=== PATIENT | male | born 1950 | race Caucasian/White ===

== ENCOUNTER → 2022-02-25 12:53 | Outpatient (CLI) | payer MEDICARE, SELFPAY ==
[2022-02-25 14:28] LABS: Hematocrit 38.8 % (41-53); Hemoglobin 13.7 g/dL (13.5-17.5); Mean Corpuscular HGB Conc 35.4 % (30-36); Mean Corpuscular Hemoglobin 33.3 PG (26-34); Mean Corpuscular Volume 94.1 fL (80-100); Platelet Count 221 X10^3/uL (150-400); Red Blood Cell Count 4.12 X10^6/uL (4.5-5.9); Red Cell Distribution Width 12.9 % (11.6-14.8)
[2022-02-25 14:49] LABS: Alanine Aminotransferase 19 IU/L (<50); Albumin 4.4 g/dL (3.5-5.0); Albumin Globulin Ratio 1.6 (1.0-2.8); Alkaline Phosphatase 62 U/L (38-126); Aspartate Aminotransferase 25 IU/L (17-59); BUN Creatinine Ratio 32.3 (6-22); Bilirubin Total 0.5 mg/dL (0.2-1.3); Blood Urea Nitrogen 32 mg/dL (9-20); Calcium 9.2 mg/dL (8.4-10.2); Carbon Dioxide 23 mmol/L (22-32); Chloride 108 mmol/L (98-107); Cholesterol 159 mg/dL (140-199); Estimated Glomerular Filt Rate > 60 mL/min (>60); Globulin 2.8 g/dL (1.7-4.1); Glucose 90 mg/dL (80-110); HDL Cholesterol 65 mg/dL (40-60); HEMOLYSIS < 15 (0-50); LDL Cholesterol Calculated 72 mg/dL (<100); Potassium 4.4 mmol/L (3.4-5.1); Sodium 138 mmol/L (137-145); Total Protein 7.2 g/dL (6.3-8.2); Triglycerides 111 mg/dL (35-150)
[2022-02-25 15:18] LABS: Prostate Specific Antigen 1.48 ng/mL (0.10-4.00)
[2022-02-25 15:19] LABS: TSH w/ Reflex to FT4 1.41 uIU/mL (0.47-4.68)
== END ==
PROVIDERS: PCP Internal Medicine; Referring Provider Internal Medicine; Visit Provider Internal Medicine
DX: E78.2 Mixed hyperlipidemia (principal); N40.1 Benign prostatic hyperplasia with lower urinary tract symptoms; N13.8 Other obstructive and reflux uropathy
CPT/HCPCS: 36415; 80053; 80061; 84153; 84443; 85027

== ENCOUNTER 2022-04-06 07:18 | Day surgery (SDC) | payer MEDICARE, SELFPAY ==
[2022-04-01 14:09] VITALS: BMI 23.5
[2022-04-06 07:34] VITALS: BP 153/84; PULSE 68; RESP 16; TEMP 36.3; O2SAT 97; BMI 23.5
[2022-04-06 08:13] LABS: COVID19 -Nasal RAPID Negative (Negative)
--- NOTE | 2022-04-06 09:11 | PM.HP.1 ---
History of Present Illness History of Present Illness Date Patient Seen: 04/06/22 Time Patient Seen: 09:11 Chief complaint: COC Narrative: Robert is here for his right inguinal hernia repair. He did decide after our last encounter that he would like to proceed with the standard open inguinal hernia repair with mesh rather than the Shouldice tissue repair. Patient History Medical History (Updated 04/01/22 @ 14:12 by Deb Baxter RN) Arthritis BPH w urinary obs/LUTS Depression Depression, major, recurrent Easy bruisability Eczematous dermatitis Gait abnormality Generalized anxiety disorder Hearing loss Mixed hyperlipidemia Psoriasis Right ear impacted cerumen Right inguinal hernia Screening for colon cancer Tendonitis of left rotator cuff Surgical History Anesthesia History of shoulder surgery (~2011) Family & Social History Family History Father Cancer Mother Accident Brother Cancer Social History: household members none Tobacco & Substance use: Tobacco type e-cigarettes Smoking Status Current every day smoker alcohol intake current alcohol intake frequency 0-2 drinks per day Substance Use Type marijuana Meds Home Medications and Allergies Home Medications Medication Instructions Recorded Confirmed Type bupropion HCl 150 mg 24 hr tablet, 150 mg PO DAILY 02/25/22 04/06/22 History extended release nystatin 100,000 unit/gram topical 1 applic topical DAILY PRN steve 02/25/22 03/03/22 History powder (Nystop) tamsulosin 0.4 mg capsule 0.4 mg PO DAILY 02/25/22 04/06/22 History acetaminophen 500 mg tablet 1,000 mg PO BID 04/01/22 04/06/22 History ibuprofen 200 mg tablet 400 mg PO BID 04/01/22 04/06/22 History Allergies Allergy/AdvReac Type Severity Reaction Status Date / Time No Known Drug Allergies Allergy Verified 03/03/22 14:55 Exam Vital Signs (past 8 hours): - 04/06/22 07:34 Temperature 97.3 F L Pulse Rate 68 Respiratory Rate 16 Blood Pressure 153/84 H Pulse Oximetry 97 Oxygen Delivery Method Room Air Oxygen Delivery Method Room Air Narrative Exam Narrative: Large right inguinal hernia Const General: No acute distress Objective Labs Labs: Laboratory Results - last 24 hr 04/06/22 07:30 SARS-CoV-2 (PCR) Negative Assessment & Plan Assessment and plan (1) Right inguinal hernia: Status: Acute Plan We will proceed with a standard open right inguinal hernia repair with mesh. He understands the risks and benefits and wishes to proceed. Time Spent With Patient Critical Care time: I spent a total of [] minutes of critical care time on this patient's care today; this time is exclusive of procedural time.
[2022-04-06] MEDS: CEFAZOLIN 2 GM/20 ML SYRINGE IV (09:50)
[2022-04-06] MEDS: BUPIVACAINE 0.5% (PF) VIAL 30 ML INJ (10:00)
[2022-04-06] MEDS: LIDOCAINE 1% W/EPI 20 ML INJ (10:00)
--- NOTE | 2022-04-06 10:05 | SUR.OPER ---
Supine on padded OR bed, head on pillow, arms secured on padded arm boards at <90 degrees abduction, legs uncrossed, safety belt at thigh, tape over blanket over lower legs.
[2022-04-06 11:15] VITALS: BP 129/66; PULSE 65; RESP 16; TEMP 36.7; O2SAT 92
[2022-04-06] MEDS: LACTATED RINGERS 1,000 ML 42 ML IV (11:15)
[2022-04-06 11:20] VITALS: BP 133/68; PULSE 66; RESP 16; O2SAT 93
--- NOTE | 2022-04-06 11:23 | P.OP_ITS ---
Operative Date/Time/Diagnoses Date of procedure: 04/06/22 Time of procedure: 11:23 Pre-op diagnosis: Right inguinal hernia Post-op diagnosis: same Procedure & Clinicians Procedure: Open right inguinal hernia repair with mesh Same procedure as scheduled: Yes Surgeon: Jonathon Howard Anesthesia Type: General Operative Notes Procedure in detail: Preoperative antibiotic was administered. The patient was brought to the operating room and placed on the table in supine position general anesthesia was induced. The right groin was prepped and draped in the normal fashion and a time-out was performed. The large right inguinal hernia was reduced after the patient is asleep. Roughly 10 mL of local anesthetic were injected into the skin and subcutaneous adipose tissue over the right groin. A 7 cm incision was made over the right inguinal canal. Dissection was carried down through the subcutaneous adipose tissue. A bridging vein was cauterized. We exposed the external oblique aponeurosis in the direction of the fibers. Additional local was injected deep to the aponeurosis. A 15 blade scalpel was used to itz the external oblique aponeurosis. Metzenbaum scissors were used to carefully open the aponeurosis in the direction of the fibers taking care not to injure the underlying ilioinguinal nerve. We completely exposed the inguinal canal. The cord was dissected free from the inguinal ligament and floor of the inguinal canal and the external oblique ap oneurosis was dissected off of the internal oblique taking care not to injure the hypogastric nerve. We encircled the cord with a Paicines drain for retraction. We divided some of the cremasteric fibers near the internal ring. There was a large indirect hernia sac. We dissected the sac free from the cord structures. We then fashioned a piece of polypropylene mesh to fit the inguinal canal floor. The mesh was secured with multiple interrupted 3-0 Prolene sutures to the pubic tubercle and shelving edge of the inguinal ligament as well as to the conjoint tendon medially. We cut a slit in the mesh and overlapped the tails to recreate an internal ring and secured the medial tail to the inguinal ligament with additional sutures. We injected some more local into the fatty tissue in the inguinal canal and cord. Finally, we removed the Cayden drain and closed the external oblique fascia with a running 3-0 Vicryl suture. Skin was closed with interrupted 3-0 Vicryl dermal sutures and a running 4 Monocryl subcuticular stitch. EBL 15 mL The patient was awakened and brought to recovery room. Post-operative Condition: stable Disposition: PACU
[2022-04-06 11:25] VITALS: BP 113/69; PULSE 66; RESP 14; TEMP 36.1; O2SAT 95
[2022-04-06 11:30] VITALS: BP 113/69; PULSE 67; RESP 14; O2SAT 96
[2022-04-06 11:40] VITALS: BP 114/65; PULSE 68; RESP 16; TEMP 36.2; O2SAT 94
--- NOTE | 2022-04-06 11:51 | SUR.PHASEII ---
Discharge instructions reviewed with pt and he verbalized understanding.
== END 2022-04-06 12:00 | disposition home or self-care (01) ==
PROVIDERS: PCP Internal Medicine; Referring Provider Surgery; Visit Provider Surgery
PROC: (CPT 49505; principal; 2022-04-06 09:15)
DX: K40.90 Unilateral inguinal hernia, without obstruction or gangrene, not specified as recurrent (principal); Z20.822 Contact with and (suspected) exposure to COVID-19
CPT/HCPCS: 49505; 87635; C9803; J0690; J1100; J1885; J2250; J2405; J2704; J3010

== ENCOUNTER → 2023-10-17 12:22 | Outpatient (CLI) | payer MEDICARE, SELFPAY ==
[2023-10-17 13:06] LABS: Hematocrit 41.6 % (41-53); Hemoglobin 14.5 g/dL (13.5-17.5); Mean Corpuscular Hemoglobin 33.1 PG (26-34); Mean Corpuscular Volume 94.5 fL (80-100); Platelet Count 206 X10^3/uL (150-400); Red Cell Distribution Width 13.2 % (11.6-14.8); White Blood Cell Count 6.5 X10^3/uL (4.5-11.0)
[2023-10-17 13:46] LABS: Alanine Aminotransferase 31 IU/L (<50); Albumin 4.3 g/dL (3.5-5.0); Albumin Globulin Ratio 1.4 (1.0-2.8); Alkaline Phosphatase 64 U/L (38-126); Aspartate Aminotransferase 28 IU/L (17-59); BUN Creatinine Ratio 27.7 (6-22); Bilirubin Total 0.8 mg/dL (0.2-1.3); Blood Urea Nitrogen 28 mg/dL (9-20); Calcium 10.1 mg/dL (8.4-10.2); Carbon Dioxide 25 mmol/L (22-32); Chloride 107 mmol/L (98-107); Cholesterol 126 mg/dL (140-199); Estimated Glomerular Filt Rate > 60 mL/min (>60); Glucose 96 mg/dL (80-110); HDL Cholesterol 65 mg/dL (40-60); HEMOLYSIS < 15 (0-50); LDL Cholesterol Calculated 24 mg/dL (<100); Potassium 4.5 mmol/L (3.4-5.1); Sodium 137 mmol/L (137-145); Total Protein 7.3 g/dL (6.3-8.2); Triglycerides 185 mg/dL (35-150)
[2023-10-17 14:09] LABS: Prostate Specific Antigen 1.83 ng/mL (0.10-4.00)
[2023-10-17 14:45] LABS: TSH w/ Reflex to FT4 1.63 uIU/mL (0.47-4.68)
== END ==
PROVIDERS: PCP Internal Medicine; Referring Provider Internal Medicine; Visit Provider Internal Medicine
DX: E78.2 Mixed hyperlipidemia (principal); N40.1 Benign prostatic hyperplasia with lower urinary tract symptoms; N13.8 Other obstructive and reflux uropathy; J44.9 Chronic obstructive pulmonary disease, unspecified
CPT/HCPCS: 36415; 80053; 80061; 84153; 84443; 85027

== ENCOUNTER → 2023-10-27 13:40 | Outpatient (CLI) | payer MEDICARE, SELFPAY | LOC: RESP 13:43 | PROVIDERS: PCP Internal Medicine; Referring Provider Internal Medicine; Visit Provider Internal Medicine | DX: J44.9 Chronic obstructive pulmonary disease, unspecified (principal); Z87.891 Personal history of nicotine dependence | CPT/HCPCS: 94060; 94726; 94729 ==

== ENCOUNTER → 2023-11-02 10:34 | Outpatient (CLI) | payer MEDICARE, SELFPAY ==
--- NOTE | 2023-11-02 10:35 | DI.CT.S_ITS ---
PROCEDURE: CT LUNG LOW DOSE SCREENING INDICATIONS: tobacco use disorder TECHNIQUE: Noncontrast 2.0-2.5 mm thick sections acquired from the pulmonary apices to the posterior costophrenic angles. 7 mm thick axial MIP, and 5 mm coronal and sagittal reformats were then acquired. For radiation dose reduction, the following was used: automated exposure control, adjustment of mA and/or kV according to patient size. COMPARISON: None. FINDINGS: Image quality: Diagnostic. Lower Neck: No enlarged lymph nodes. Thyroid: No thyroid nodules which require sonographic follow up, per consensus guidelines. Axillae: No enlarged lymph nodes. Chest Wall: Unremarkable. Bones: Unremarkable. Lungs and Pleura: There is severe centrilobular emphysema with an apical predominance. A 3 mm pulmonary nodule is present within the right lower lobe. Focal emphysematous changes are present in the dependent lung bases bilaterally. No pneumothorax or pleural effusions. No consolidation or suspicious nodules. Heart: Heart size is normal. No pericardial effusion. Thoracic Vessels: The aorta and pulmonary arteries demonstrate normal size. Scattered atheromatous calcifications are present within the aortic arch. Mediastinum and Marie: No enlarged lymph nodes. Esophagus: No wall thickening. No hiatal hernia. Upper Abdomen: Visualized upper abdomen solid organs and bowel loops appear normal. IMPRESSION: No suspicious pulmonary nodules. LUNG-RADS 1; continued annual screening, if eligible. Clinically Significant Non-pulmonary Findings: None. Dictated by: Nikole Staley M.D. on 11/02/2023 at 14:48 Approved by: Nikole Staley M.D. on 11/02/2023 at 14:56
== END ==
PROVIDERS: PCP Internal Medicine; Referring Provider Internal Medicine; Visit Provider Internal Medicine
DX: F17.210 Nicotine dependence, cigarettes, uncomplicated (principal); Z12.2 Encounter for screening for malignant neoplasm of respiratory organs; R91.1 Solitary pulmonary nodule; J43.2 Centrilobular emphysema
CPT/HCPCS: 71271

== ENCOUNTER 2024-02-07 11:59 | Day surgery (SDC) | payer MEDICARE, SELFPAY ==
[2024-02-07] MEDS: LACTATED RINGERS 1,000 ML 42 ML IV (12:22)
[2024-02-07 12:41] VITALS: BP 151/85; PULSE 81; RESP 16; TEMP 36.4; O2SAT 95
--- NOTE | 2024-02-07 13:13 | PM.HP.1 ---
History of Present Illness History of Present Illness Date Patient Seen: 02/07/24 Time Patient Seen: 13:13 Chief complaint: [facility] Narrative: 73-year-old man here for screening colonoscopy. Last colonoscopy 20 years ago normal. No family history of intestinal malignancy. No abdominal concerns today. [facility] Medical History (Updated 01/17/24 @ 11:13 by Jose Little MD) Elevated blood pressure reading without diagnosis of hypertension Tobacco use disorder COPD (chronic obstructive pulmonary disease) Psoriasis Easy bruisability Depression Arthritis Eczematous dermatitis Mixed hyperlipidemia Gait abnormality Tendonitis of left rotator cuff Right ear impacted cerumen BPH w urinary obs/LUTS Right inguinal hernia Generalized anxiety disorder Depression, major, recurrent Hearing loss Surgical History Anesthesia History of shoulder surgery (~2011) Family History Father Cancer Mother Accident Brother Cancer Social History details: , 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 sons, 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 household members: none Smoking Status: Former smoker alcohol intake: current Meds Home Medications and Allergies Home Medications Medication Instructions Recorded Confirmed Type nystatin 100,000 unit/gram topical 1 applic topical DAILY PRN steve 02/25/22 02/07/24 History powder (Nystop) acetaminophen 500 mg tablet 1,000 mg PO BID 04/01/22 02/07/24 History bupropion HCl 150 mg 24 hr tablet, 150 mg PO QAM #90 tabs 10/17/23 02/07/24 Rx extended release rosuvastatin 10 mg tablet 10 mg PO DAILY #90 tabs 10/17/23 02/07/24 Rx tamsulosin 0.4 mg capsule 0.4 mg PO DAILY #90 caps 10/17/23 02/07/24 Rx albuterol sulfate 90 mcg/actuation 2 inh inhalation Q4-6H PRN 01/11/24 02/07/24 Rx aerosol inhaler shortness of breath or wheezing #8.5 grams Allergies Allergy/AdvReac Type Severity Reaction Status Date / Time duloxetine AdvReac Intermediate lethargy Verified 02/07/24 12:30 Exam Vital Signs (past 8 hours): - 02/07/24 12:41 Temperature 97.5 F L Pulse Rate 81 Respiratory Rate 16 Blood Pressure 151/85 H Pulse Oximetry 95 Oxygen Delivery Method Room Air Oxygen Delivery Method Room Air Narrative Exam Narrative: General adult man alert oriented no acute distress Chest nonlabored respiration Extremities warm well perfused Assessment & Plan Assessment & Plan narrative: The patient requires colorectal screening and colonoscopy is recommended. Technical details were discussed. Risks, benefits, alternatives explained. Risks including but not limited to myocardial infarction, aspiration, bleeding, pain, missed lesion, incomplete examination, need for further radiographic studies, intestinal injury, and need for major abdominal surgery were discussed. All questions were answered to their satisfaction, and they are in agreement with this plan.
[2024-02-07 13:31] VITALS: BP 164/96; PULSE 74; RESP 23; TEMP 36.2; O2SAT 92
[2024-02-07 13:35] VITALS: BP 143/86; PULSE 79; RESP 17; O2SAT 92
[2024-02-07 13:37] VITALS: BP 119/77; PULSE 76; RESP 11; RESP 16; O2SAT 92; O2SAT 94
--- NOTE | 2024-02-07 13:37 | P.OP.COLON_ITS ---
Operative Date/Time/Diagnoses Date of procedure: 02/07/24 Time of procedure: 13:37 Pre-op diagnosis: Colorectal screening Procedure & Clinicians Study performed: Screening colonoscopy Same procedure as scheduled: Yes Indications: Colorectal screening Surgeon: Mariano Jackson Procedure Notes Procedure in detail: The history and physical was performed/updated and the patient is ASA class is 2. The procedure was discussed in detail with the patient. Potential risks co mplications including infection, bleeding, missed diagnosis, perforation, need for surgery, and were explained. Their questions were answered and informed consent was obtained. Patient was brought to the procedure room and placed standard monitoring equipment. The patient's vital signs were monitored continuously throughout the entire procedure. Prior to starting time-out was performed. The patient was placed in the left lateral recumbent position. Procedural sedation was administered by anesthesia. Examination began with a thorough inspection of the perianal area there was no evidence of fissures, fistulae, external hemorrhoids or cutaneous malignancy. The colonoscopy scope was then placed into the anal canal and was advanced to the cecum, which was identified by the ileocecal valve, the appendiceal orifice and the confluence of the taenia. The scope was then slowly withdrawn examining colon thoroughly in all directions, irrigating it of any residual stool. The scope was retroflexed within the rectum The patient tolerated the procedure well. They will be discharged once criteria are met. The prep was of fair. The withdrawl time was 7 minutes. FINDINGS * No masses or polyps * Extensive diverticulosis of the descending and sigmoid colon * Internal hemorrhoids Specimen(s): none sent Impression: Diverticulosis Post-procedure Recommendations: High fiber diet Disposition: same day surgery
[2024-02-07 13:46] VITALS: BP 123/79; PULSE 71; RESP 16; O2SAT 92
== END 2024-02-07 14:10 | disposition home or self-care (01) ==
PROVIDERS: PCP Internal Medicine; Referring Provider Surgery; Visit Provider Surgery
PROC: 0DJD8ZZ Inspection of Lower Intestinal Tract, Via Natural or Artificial Opening Endoscopic (ICD-10-PCS; CPT 45378; principal; 2024-02-07 13:15)
DX: Z12.11 Encounter for screening for malignant neoplasm of colon (principal); K57.30 Diverticulosis of large intestine without perforation or abscess without bleeding; K64.8 Other hemorrhoids
CPT/HCPCS: G0121; J2704

== ENCOUNTER → 2024-10-18 11:59 | Outpatient (CLI) | payer MEDICARE, SELFPAY ==
[2024-10-18 13:03] LABS: Aspartate Aminotransferase 29 IU/L (17-59); BUN Creatinine Ratio 25.4 (6-22); Blood Urea Nitrogen 29 mg/dL (9-20); Calcium 9.9 mg/dL (8.4-10.2); Carbon Dioxide 25 mmol/L (22-32); Chloride 107 mmol/L (98-107); Cholesterol 141 mg/dL (140-199); Estimated Glomerular Filt Rate > 60 mL/min (>60); Glucose 92 mg/dL (80-110); HDL Cholesterol 74 mg/dL (40-60); HEMOLYSIS < 15 (0-50); LDL Cholesterol Calculated 20 mg/dL (<100); Potassium 4.6 mmol/L (3.4-5.1); Sodium 139 mmol/L (137-145); Triglycerides 235 mg/dL (35-150)
[2024-10-18 13:33] LABS: Prostate Specific Antigen 1.96 ng/mL (0.10-4.00)
== END ==
LOC: LAB 12:00
PROVIDERS: PCP Internal Medicine; Referring Provider Internal Medicine; Visit Provider Internal Medicine
DX: E78.2 Mixed hyperlipidemia (principal); N40.1 Benign prostatic hyperplasia with lower urinary tract symptoms; N13.8 Other obstructive and reflux uropathy; R03.0 Elevated blood-pressure reading, without diagnosis of hypertension
CPT/HCPCS: 36415; 80048; 80061; 84153; 84450

== ENCOUNTER → 2024-11-02 12:35 | Outpatient (CLI) | payer MEDICARE, SELFPAY ==
--- NOTE | 2024-11-02 12:38 | DI.CT.S_ITS ---
PROCEDURE: CT LUNG LOW DOSE SCREENING INDICATIONS: lung cancer screening TECHNIQUE: Noncontrast 2.0-2.5 mm thick sections acquired from the pulmonary apices to the posterior costophrenic angles. 7 mm thick axial MIP, and 5 mm coronal and sagittal reformats were then acquired. For radiation dose reduction, the following was used: automated exposure control, adjustment of mA and/or kV according to patient size. COMPARISON: [facility], CT, CT LUNG LOW DOSE SCREENING, 11/02/2023, 10:44. FINDINGS: Image quality: Diagnostic. Lower Neck: No enlarged lymph nodes. Thyroid: No thyroid nodules which require sonographic follow up, per consensus guidelines. Axillae: No enlarged lymph nodes. Chest Wall: Unremarkable. Bones: Mild degenerative changes. Lungs and Pleura: Severe emphysematous changes are redemonstrated. No pneumothorax or pleural effusions. Scattered calcified granulomas in perifissural nodules are similar to prior. Increased size of a right upper lobe perifissural nodule measuring 8 x 5 mm (3/163), previously 6 x 4 mm. This nodule is partially calcified. Heart: Heart size is normal. Moderate coronary artery calcifications. No pericardial effusion. Thoracic Vessels: The aorta and pulmonary arteries demonstrate normal size. Atherosclerotic vascular calcifications are present. Mediastinum and Marie: No enlarged lymph nodes. Esophagus: No wall thickening. No hiatal hernia. Upper Abdomen: Visualized upper abdomen solid organs and bowel loops appear normal. IMPRESSION: 1. Increased size of a right upper lobe pulmonary nodule which is partially calcified measuring 8 x 5 mm. May represent a perifissural lymph node or developing granuloma, however due to increase in size, a six-month follow-up chest CT is recommended. 2. Other perifissural nodules and granulomas are stable compared to prior exam. 3. Severe emphysematous changes are redemonstrated. LUNG-RADS 3; recommend 6 month follow-up chest CT. Dictated by: Vernon Boyd M.D. on 11/02/2024 at 21:41 Approved by: Vernon Boyd M.D. on 11/02/2024 at 21:47
== END ==
PROVIDERS: PCP Internal Medicine; Referring Provider Internal Medicine; Visit Provider Internal Medicine
DX: Z12.2 Encounter for screening for malignant neoplasm of respiratory organs (principal); Z87.891 Personal history of nicotine dependence; R91.8 Other nonspecific abnormal finding of lung field
CPT/HCPCS: 71271

== ENCOUNTER → 2025-04-15 10:42 | Outpatient (CLI) | payer MEDICARE, SELFPAY ==
--- NOTE | 2025-04-15 10:44 | DI.CT.S_ITS ---
PROCEDURE: CT CHEST WO CON INDICATIONS: followup RUL pul nodule TECHNIQUE: Noncontrast 5 mm thick sections acquired from the pulmonary apices to the posterior costophrenic angles. 1 mm lung window, 5 mm thick coronal and sagittal and 7 mm axial MIP reformats were then acquired. For radiation dose reduction, the following was used: automated exposure control, adjustment of mA and/or kV according to patient size. COMPARISON: [facility], CT, CT LUNG LOW DOSE SCREENING, 11/02/2024, 12:44. FINDINGS: Image quality: Diagnostic. Lower Neck: No enlarged lymph nodes. Thyroid: No thyroid nodules which require sonographic follow up, per consensus guidelines. Axillae: No enlarged lymph nodes. Chest Wall: Unremarkable. Bones: Unremarkable. Lungs and Pleura: No pneumothorax or pleural effusions. Moderate COPD again seen. Stable appearance of a 8 millimeter linear density along the minor fissure which is therefore benign.. A micronodule in the right lower lobe medially is also stable, most likely benign. No new focal lesion seen. Heart: Heart size is normal. No pericardial effusion. Thoracic Vessels: The aorta and pulmonary arteries demonstrate normal size. Mediastinum and Marie: No enlarged lymph nodes. Esophagus: No wall thickening. No hiatal hernia. Upper Abdomen: Visualized upper abdomen solid organs and bowel loops appear normal. IMPRESSION: Stable appearance of benign parenchymal densities on the right, with no suspicious focal lesion seen. Follow-up screening CT may be obtained in 1 year. Dictated by: Rishi Cabral M.D. on 04/15/2025 at 14:28 Approved by: Rishi Cabral M.D. on 04/15/2025 at 14:33
== END ==
PROVIDERS: PCP Internal Medicine; Referring Provider Internal Medicine; Visit Provider Internal Medicine
DX: J44.9 Chronic obstructive pulmonary disease, unspecified (principal); R91.1 Solitary pulmonary nodule
CPT/HCPCS: 71250